=== PATIENT | female | born 1975 | race Caucasian/White ===

== ENCOUNTER 2016-03-26 16:44 | Emergency (ER) | payer BC ==
[2016-03-26 17:29] VITALS: BP 124/92
[2016-03-26] MEDS ORDERED: HYDROcodone/ACETAMIN 5-325 MG* 1 TAB PO ONE (17:58)
[2016-03-26] MEDS ORDERED: Cephalexin CAP* 500 MG PO ONE (18:14)
--- NOTE | 2016-03-26 18:14 | UC ---
Back Pain HPI - HPI Summary HPI Summary: bilat flank pain from hips to bottoms of ribs. Hurts more to lie on back, but also painful when moving around. Movement doesnt' seem to worsen it. Feels like a prior UTI, though no dysuria or inc frequency. No trauma. No fever, no vomiting. 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 Negative: Fever, Bladder Incontinence, Bowel Incontinence, Weight Loss, Pain with Weight Bearing Related History: Similar Episode Dx As - UTI many years ago - Risk Factors AAA Risk Factors: Negative TAD Risk Factors: Negative Cauda Equina Risk Factors: Negative Epidural Abscess Risk Factors: Negative - Allergies/Home Medications Allergies/Adverse Reactions: Allergies Allergy/AdvReac Type Severity Reaction Status Date / Time Acetaminophen [From Ultracet] Allergy Severe Hives Verified 03/26/16 17:29 Tramadol [From Ultracet] Allergy Severe Hives Verified 03/26/16 17:29 Latex Allergy Rash Verified 03/26/16 17:29 PMH/Surg Hx/FS Hx/Imm Hx Endocrine History Of: Reports: Diabetes - Pre-diabetes. Cardiovascular History Of: Reports: Hypertension - She is not on treatment. Denies: Cardiac Disorders, Pacemaker/ICD, Myocardial Infarction, Congestive Heart Failure, Atrial Fibrillation, Deep Vein Thrombosis, Bleeding Disorders Respiratory History Of: Denies: Asthma GI/ History Of: Denies: Gastroesophageal Reflux, Ulcer, Gastrointestinal Bleed, Gall Bladder Disease, Kidney Stones, Diverticulitis, Renal Disease, Urosepsis Neurological History Of: Denies: TIA, CVA, Dementia, Seizures, Migraine Psychological History Of: Denies: Anxiety, Depression, Bipolar Disorder, Schizophrenia, Post Traumatic Stress Disorder Cancer History Of: Denies: Lung Cancer, Colorectal Cancer, Breast Cancer, Prostate Cancer, Cervical Cancer Other History Of: Negative For: HIV, Hepatitis B, Hepatitis C, Anticoagulant Therapy - Surgical History Surgical History: Yes Surgery Procedure, Year, and Place: carpal tunnel RIGHT , 2008, [facility], b/l carpal tunnel - Family History Known Family History: Positive: Hypertension - Social History Occupation: Employed Full-time Lives: With Family Alcohol Use: Rare Substance Use Type: None Smoking Status (MU): Never Smoked Tobacco - Immunization History Most Recent Influenza Vaccination: [id number] Review of Systems Constitutional: Negative Skin: Negative Eyes: Negative ENT: Negative Respiratory: Negative Cardiovascular: Negative Gastrointestinal: Negative Genitourinary: Negative Motor: Negative Neurovascular: Negative Musculoskeletal: Other: - bilat flank tenderness on percussion Neurological: Negative Psychological: Negative All Other Systems Reviewed And Are Negative: Yes Physical Exam Triage Information Reviewed: Yes Appearance: Well-Appearing, No Pain Distress, Well-Nourished Vital Signs: Initial Vital Signs Temp 98.7 F 03/26/16 17:19 Pulse 86 03/26/16 17:19 Resp 17 03/26/16 17:19 BP 124/92 03/26/16 17:19 Pulse Ox 100 03/26/16 17:19 Vital Signs Reviewed: Yes Eye Exam: Normal Neck exam: Normal Neck: Positive: Supple Respiratory Exam: Normal Respiratory: Positive: Lungs clear Cardiovascular Exam: Normal Abdomen Description: Positive: Nontender, No Organomegaly, Soft Musculoskeletal Exam: Other - mild flank tenderness on percussion, bilat, equivalent Neurological Exam: Normal Psychological Exam: Normal Skin Exam: Normal Diagnostics - Laboratory Diagnostic Studies Completed/Ordered: U/A 1+ leuks, HCG neg Back Pain Course/Dx - Differential Dx/Diagnosis Differential Diagnosis/HQI/PQRI: Strain Provider Diagnoses: UTI Discharge - Discharge Plan Condition: Stable Disposition: HOME Prescriptions: Cephalexin CAP* [Keflex CAP*] 500 mg PO TID #30 cap HYDROcodone/ACETAMIN 5-325 MG* [Hardin 5-325 TAB*] 1 - 2 tab PO Q6H PRN #14 tab MDD 6 tab PRN Reason: Pain Patient Education Materials: Urinary Tract Infection in Women (ED) Referrals: Non Staff,Doctor [Primary Care Provider] -
== END 2016-03-26 18:22 | disposition home or self-care (01) ==
LOC: UCCORT 16:44
DX: N39.0 Urinary tract infection, site not specified (principal); Z87.440 Personal history of urinary (tract) infections; Z88.6 Allergy status to analgesic agent; Z32.02 Encounter for pregnancy test, result negative
CPT/HCPCS: 81025; 87086; 99212; A9270-GY; G0463

== ENCOUNTER 2017-06-20 18:35 | Emergency (ER) | payer BC ==
[2017-06-20 19:50] VITALS: BP 128/85
--- NOTE | 2017-06-20 20:21 | RAD ---
INDICATION: Medial right knee pain COMPARISON: None TECHNIQUE: 4 view radiograph of the right knee. FINDINGS: The visualized bones are well-corticated and properly aligned. The joint spaces are properly maintained. There is no radiographic evidence of joint effusion. There is no acute fracture, dislocation or other focal bony abnormality. IMPRESSION: Normal knee radiograph as described above. If the patient's symptoms persist, follow-up imaging is recommended.
--- NOTE | 2017-06-20 20:27 | UC ---
Knee Pain HPI - HPI Summary HPI Summary: pt states in Dec tripped over her dog twisting her right knee. Since this time intermittent discomfort. Pt states last night at work had progressive discomfort in knee. Pt states since this time continues to feel stiff. Pt states feels like it "catches" Pt has used an OTC splint with mild improvement. Took Aleve x 1. No edema. No new injury. Pt has not seen anyone for knee walking with limp no paresthesia pt's medications reviewed this visit - History of Current Complaint Chief Complaint: UCLowerExtremity Stated Complaint: RIGHT LEG PAIN Time Seen by Provider: 06/20/17 20:24 Hx Obtained From: Patient Hx Last Menstrual Period: 06/12/17 Onset/Duration: Gradual Onset Severity Initially: Moderate Severity Currently: Moderate Pain Intensity: 7 Pain Scale Used: 0-10 Numeric Character: Aching, Stiffness Aggravating Factor(s): Movement, Weight Bearing Alleviating Factor(s): Rest, OTC Meds - Allergies/Home Medications Allergies/Adverse Reactions: Allergies Allergy/AdvReac Type Severity Reaction Status Date / Time acetaminophen [From Ultracet] Allergy Hives Verified 06/20/17 19:43 latex Allergy Rash Verified 06/20/17 19:43 tramadol [From Ultracet] Allergy Hives Verified 06/20/17 19:43 Home Medications: Home Medications Pain Med 1 tab QID 06/20/17 [History Confirmed 06/20/17] PMH/Surg Hx/FS Hx/Imm Hx Previously Healthy: Yes Other History Of: Negative For: HIV, Hepatitis B, Hepatitis C, Anticoagulant Therapy - Surgical History Surgical History: Yes Surgery Procedure, Year, and Place: carpal tunnel RIGHT , 2007, [facility], b/l carpal tunnel - Family History Known Family History: Positive: Hypertension - Social History Occupation: Employed Full-time Lives: With Family Alcohol Use: Rare Substance Use Type: None Smoking Status (MU): Never Smoked Tobacco - Immunization History Most Recent Influenza Vaccination: [id number] Review of Systems Constitutional: Negative Skin: Negative Motor: Other - right knee pain All Other Systems Reviewed And Are Negative: Yes Physical Exam Triage Information Reviewed: Yes Appearance: Well-Appearing, No Pain Distress, Well-Nourished Vital Signs: Initial Vital Signs Temp 97.7 F 06/20/17 19:43 Pulse 99 06/20/17 19:43 Resp 16 06/20/17 19:43 BP 128/85 06/20/17 19:43 Pulse Ox 98 06/20/17 19:43 Vital Signs Reviewed: Yes Eye Exam: Normal Eyes: Positive: Conjunctiva Clear ENT: Positive: Hearing grossly normal Neck exam: Normal Neck: Positive: Supple, Nontender, No Lymphadenopathy Respiratory: Positive: Normal breath sounds, No respiratory distress, No accessory muscle use Cardiovascular: Positive: RRR, No Murmur, Other: - 2+ DP, Pt CBT < 2 sec Musculoskeletal: Positive: Other: - + SLE + flex knee limited at 30 degree second to pain + flex/ext ankle + great toe extensin no joint laxity anterior/ posterir drawer + TTP lateral and inferior margin of patella no edema Neurological: Positive: Other: - + gross sensation throughout Psychological Exam: Normal Skin Exam: Normal Diagnostics - Radiology No standard instances Radiology Interpretation Completed By: Radiologist - INDICATION: Medial right knee pain COMPARISON: None TECHNIQUE: 4 view radiograph of the right knee. FINDINGS: The visualized bones are well-corticated and properly aligned. The joint spaces are properly maintained. There is no radiographic evidence of joint effusion. There is no acute fracture, dislocation or other focal bony abnormality. IMPRESSION: Normal knee radiograph as described above. If the patient's symptoms persist, follow-up imaging is recommended. <Electronically signed by Edmond Carmona MD in [place]> 06/20/172016 Dictated By: Edmond Carmona MD Dictated Date/Time : 06/20/172016 Transcribed Date/Time: 06/20/172016 Copy to: Knee Pain Course/Dx - Course Course Of Treatment: Pt with discomfort right knee s/p remote injury. pt favoring wtih ambulation. will check imaging. sumit. reviewed motrin/apap. ice. ortho. work note - Differential Dx/Diagnosis Provider Diagnoses: knee sprain Discharge - Sign-Out/Discharge Documenting (check all that apply): Discharge - Discharge Plan Condition: Stable Disposition: HOME Patient Education Materials: Knee Pain (ED) Forms: *Work Release Referrals: Can Wesley MD [Medical Doctor] - Non Staff,Doctor [Primary Care Provider] - Additional Instructions: -wear sumit wrap for comfort and support -apply ice (20 min at a time) every 2-3 hours for the next 2 days -use crutches until you can walk normally without a limp -Elevate your leg - this will help with swelling and pain - Alternate ibuprofen (advil, Motrin) 600mg and tylenol every 3 hours for pain. Take with food. Do NOT take for more than 4-5 days -Contact the orthopedic tech to arrange a follow-up appointment. Contact your doctor or return with questions or concerns - Billing Disposition and Condition Condition: STABLE Disposition: HOME
== END 2017-06-20 20:59 | disposition home or self-care (01) ==
LOC: UCCORT 18:35
DX: S83.91XA Sprain of unspecified site of right knee, initial encounter (principal); X50.0XXA Overexertion from strenuous movement or load, initial encounter; Y92.9 Unspecified place or not applicable; Z88.6 Allergy status to analgesic agent; Z88.5 Allergy status to narcotic agent
CPT/HCPCS: 99213; G0463

== ENCOUNTER 2017-09-17 11:03 | Day surgery (SDC) | payer BC ==
--- NOTE | 2017-09-10 03:58 | HP ---
PREOPERATIVE HISTORY AND PHYSICAL: DATE OF ADMISSION/SURGERY: 09/17/17 DATE OF OFFICE VISIT: 09/07/17 ATTENDING PHYSICIAN: Dr. Stanton Jama.* (DICTATED BY ANSLEY COHEN) PROCEDURE: Right knee arthroscopy, partial meniscectomy. CHIEF COMPLAINT: Right knee pain. HISTORY OF PRESENT ILLNESS: Brittany is a 41-year-old female who presents to the clinic for right knee pain. She is referred to us by Dr. Brock. 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 After that time, she has significant pain and swelling in the knee. She states the pain gradually worsened. She currently has pain in the medial aspect of the knee. She rates it as 4/10 that radiates laterally with intermittent popping. Stairs and bending make the knee pain worse. She states she gets intermittent immediate catching and has had a history of her knee locking. She states that it does not feel unstable. In June, she did a double shift and after the double shift, the knee was very swollen. She had difficulty walking. She has done physical therapy, which did help a little. She also received a corticosteroid injection in the knee, which did help decrease the pain, but did not fully take it away. With the intermittent sharp , shooting and catching pain, she also has a constant ache. She has been using a cane to ambulate since June. She had no issues with the knee prior to February and was not using a cane to ambulate prior to June. She has tried Tylenol and ibuprofen which do help decrease the pain a little bit. She has never had surgery on this knee. She denies numbness, tingling, fever, chills, chest pain, shortness of breath and is feeling well otherwise. She is not diabetic. She is a nonsmoker. She has failed conservative measures to include a steroid injection and physical therapy, has therefore agreed to undergo right knee arthroscopy, partial meniscectomy with Dr. Jama on 09/17/17. PAST MEDICAL HISTORY: Prediabetic, hypertension, asthma, osteoarthritis. PAST SURGICAL HISTORY: Bilateral carpal tunnel release. She denies prior complications with anesthesia. MEDICATIONS: Tylenol 650 mg 1 by mouth every 6 hours as needed for pain. ALLERGIES: ULTRACET. FAMILY HISTORY: Positive for diabetes, hypertension, cancer, fibromyalgia, MS, depression, Parkinson's, and a possible DVT in her father. SOCIAL HISTORY: She lives with her spouse. She works as a FRONT OFFICE SPECIALIST. She exercises regularly. She reports occasional alcohol consumption. She denies tobacco use or illegal drug use. She is right hand dominant. REVIEW OF SYSTEMS: A 14-point review of systems was reviewed with the patient. Positive for current complaint, otherwise negative. Denies chest pain, shortness of breath, fever, chills, history of DVT or PE, history of bleeding disorder, history of MRSA. PHYSICAL EXAMINATION GENERAL: A 41-year-old well-developed, well-nourished female, in no acute distress. Alert and oriented x3. Appropriate mood and affect. Appropriate balance and coordination of the lower extremities. VITAL SIGNS: Height 67, weight 257. Blood pressure 130/78, respiratory rate 18 , temperature 97.7, BMI 40.2. HEENT: Normocephalic, atraumatic. PERRL. Throat: Clear. NECK: Supple. PULMONARY: Lungs clear to auscultation bilaterally. No wheezing, rhonchi, or rales. CARDIO: Regular rate and rhythm. S1, S2. No murmurs, gallops, or rubs. No edema. ABDOMEN: Positive bowel sounds, soft, nontender. MUSCULOSKELETAL: Right lower extremity: The skin is intact. No warmth or erythema. Moderate effusion. Tenderness to palpation over the medial joint line, greater than the lateral joint line. Range of motion is 10 to 90. Stable to varus and valgus stress. Stable Rupert. Negative posterior drawer. Calves soft and nontender. Positive Baljit. +5/5 strength with ankle dorsiflexion and plantar flexion. +2 PT pulse. Sensation intact to light touch distally. Left lower extremity, skin is intact. No warmth or erythema. Nontender to palpation. Full pain-free range of motion. Neurovascularly intact. NEURO: Alert and oriented x3. Cranial nerves grossly intact. Sensation is intact to light touch distally. DIAGNOSTIC STUDIES: Multiple view x-rays and the MRI of the right knee were independently reviewed today by Dr. Jama and revealed minimal osteoarthritic changes with an ACL sprain, but the ACL appears intact and degenerative changes of the medial meniscus. ASSESSMENT AND PLAN: Brittany is a 41-year-old female who presents to the clinic for right knee pain due to a medial meniscus tear. The patient has failed conservative measures to include physical therapy and injection; therefore, right knee arthroscopy, partial meniscectomy was discussed with the patient. Postoperative recovery as well as risks to include injury to blood vessels, nerves, surrounding structures, numbness, bleeding, stiffness, DVT, PE , risk of anesthesia and persistent pain were discussed with the patient. She would like to undergo surgery; therefore, she is scheduled to undergo a right knee arthroscopy, partial meniscectomy with Dr. Jama on 09/17/17. She will follow up in 10 to 14 days postop for followup and suture removal. Percocet will be used for postop pain management and there is a possible history of DVT in her father that is unknown, so aspirin will be used for 2 weeks for DVT prophylaxis postoperatively. ANSLEY COHEN [id number]/[facility] #: [id number] [facility]ALTH[facility]ARE SYSTEMDimitrios
[~2017-09-17 11:03] MED LIST: Buffered Lidocaine 0.9% SYRIN* 5 ML/SYR SYRINGE INTRADERM ONE; Dexamethasone IV* 4 MG/ML 1 ML (4 MG) IV SLOW PU ONE; Famotidine IV* 10 MG/ML 2 ML (20 mg) IV ONE; Ondansetron ODT TAB* 4 MG PO ONE
[2017-09-17] MEDS ORDERED: Dexamethasone IV* 4 MG/ML 1 ML (4 MG) ONE (11:13)
[2017-09-17] MEDS ORDERED: Famotidine IV* 10 MG/ML 2 ML (20 mg) ONE (11:13)
[2017-09-17] MEDS ORDERED: ceFAZolin 2 GM PREMIX (*) 2 GM/50 ML BAG IVPB ONE (11:13)
[2017-09-17] MEDS ORDERED: Bupivacaine 0.5% SDV PF* 30ML VIAL ONE (11:39)
[2017-09-17] MEDS ORDERED: Lidocaine 1% MPF wEPI 200,000* 30 ML SDV ONE (11:39)
[2017-09-17] MEDS ORDERED: Ondansetron ODT TAB* 4 MG ONE (11:52)
[2017-09-17] MEDS ORDERED: Midazolam* 1 MG/ML 5 ML VIAL (5 MG) ONE (12:36)
[2017-09-17] MEDS ORDERED: Lidocaine 2% MPF* 2 ML VIAL ONE (12:36)
[2017-09-17] MEDS ORDERED: Propofol* 10 MG/ML 20 ML BTL IV PUSH ONE (12:36)
[2017-09-17] MEDS ORDERED: Ketorolac INJ* 30 MG/ML 1 ML VIAL ONE (12:36)
[2017-09-17] MEDS ORDERED: fentaNYL* 50 MCG/ML 5 ML VIAL (250 MCG VIAL) ONE (12:36)
[2017-09-17] MEDS ORDERED: Ondansetron INJ* 2 MG/ML VIAL IV PRN (13:04)
[2017-09-17] MEDS ORDERED: Naloxone* 0.4 MG/ML 1 ML VIAL IV PRN (13:04)
[2017-09-17] MEDS ORDERED: oxyCODONE/Acetamin 5/325 MG* TAB PO PRN (13:04)
[2017-09-17] MEDS ORDERED: fentaNYL* 50 MCG/ML 2 ML VIAL (100 MCG VIAL) IV PRN (13:04)
[2017-09-17] MEDS ORDERED: DiMENhydriNATE IV* 50 MG/ML VIAL IV PUSH PRN (13:04)
[2017-09-17 14:31] VITALS: BP 109/61
--- NOTE | 2017-09-19 05:18 | OP ---
DATE OF OPERATION: 09/17/17 - [facility] DATE OF : 77 ATTENDING SURGEON: Stanton Jama MD CHROME PLATER HELPER: None available. ANESTHESIOLOGIST: Dr. Whitehead. ANESTHESIA: General. PRE-OP DIAGNOSIS: Right knee medial meniscus tear with ACL fraying. POST-OP DIAGNOSES: 1. Right knee medial and patellofemoral chondrosis. 2. Loose bodies. 3. Medial and lateral meniscal tearing and fraying. 4. Stable ACL. OPERATIVE PROCEDURE: Right knee arthroscopy with partial medial and lateral meniscectomy, removal of loose body greater than 5 mm x3, chondroplasty of the patellofemoral joints. INDICATIONS: Brittayn is a 41-year-old female who has had a right knee injury since February. She lost her balance. She had an ACL sprain. She has had a lot of catching and locking of her knee as well as an ache. She has failed conservative management including injections, physical therapy, and antiinflammatories, and has agreed to undergo a right knee arthroscopy. Risks and benefits of surgery were discussed in length which include but not limited to bleeding; infection; damage to nerves, vessels, surrounding structures; wound nonhealing; persistent pain; need for surgery; scaring; stiffness; incomplete relief of symptoms; and risks of anesthesia. DESCRIPTION OF PROCEDURE: The patient was greeted in the preoperative area by the attending surgeon. Correct extremity was marked, consent was confirmed. The patient was brought back to the operating suite where she was placed in a supine position on the operating room table. She then underwent general anesthesia, LMA intubation after which she was properly positioned in the bed. An unsterile tourniquet was placed high on the proximal thigh. Lateral post was positioned. The right leg was prepped and draped in the usual sterile fashion beginning chlorhexidine soap, scrub, and alcohol wipe, and a final prep with ChloraPrep. After appropriate surgical pause indicating site, side, procedure, and administration of antibiotics, the knee was intra-articularly injected with 1% lidocaine with epi. The lateral port was made in an outside in fashion. The scope was introduced into the joint. The patellofemoral joint had grade 2 changes with unstable flaps. There was a plica medially and abundant synovitis. Scope was brought to the notch. The ACL had evidence of still being intact with intact fibers. PCL was intact. The anteromedial portal was made in an outside in fashion. Shaver was used to debride back the ligamentum and then the fat pad as well as the plica. Immediately, there were 3 loose bodies, cartilage flaps that were floating in the joint that were removed. There were grade 2 changes with unstable flaps throughout the majority of the medial femoral condyle. Medial plateau had grade 1 changes. Medial meniscus, the body was intact but the root had partial tearing. This was probed and found to be stable. The knee was placed in [id number] and the lateral femoral condyle had grade 0 to 1 changes. Lateral plateau had grade 0 to 1 changes with fraying of the meniscus at the root as well as the body. This was debrided back using a shaver. The knee was then placed in extension and patellofemoral joint was examined, there was abundant loose bodies with grade 2 changes at the trochlear. The shaver was used to debride back and do a chondroplasty of the patellofemoral joint. All loose fluid and debris was removed from the joint. The final images were obtained. The wounds were copiously irrigated with sterile saline. She awoke from anesthesia and transferred to PACU in stable condition. POSTOPERATIVE PLAN: She will be weightbearing as tolerated with crutches for the first 3 to 5 days. She will be discharged on pain medication. DVT prophylaxis included but deferred due to no previous personal or family history. I will see the patient back in 14 days. [id number]/[facility] #: [id number] DIANE
== END 2017-09-17 14:44 | disposition home or self-care (01) ==
LOC: OREAST 11:03
PROVIDERS: ATTEND Orthopaedic Surgery
DX: S83.241A Other tear of medial meniscus, current injury, right knee, initial encounter (principal); S83.281A Other tear of lateral meniscus, current injury, right knee, initial encounter; M93.861 Other specified osteochondropathies, right lower leg; W01.0XXA Fall on same level from slipping, tripping and stumbling without subsequent striking against object, initial encounter; Y92.89 Other specified places as the place of occurrence of the external cause; R73.03 Prediabetes; I10 Essential (primary) hypertension; J45.909 Unspecified asthma, uncomplicated; M19.90 Unspecified osteoarthritis, unspecified site
CPT/HCPCS: 81025; 88304; A9270-GY; J0690; J1100; J1885; J2001; J2250; J2704; J3010